=== PATIENT | female | born 1955 | race Caucasian/White ===

== ENCOUNTER → 2016-08-26 | Outpatient (CLI) | payer OTHER ==
[~2016-08-26] MED LIST: ORPH100T PO; TRAM50 PO
--- NOTE | 2016-08-26 15:44 | EKG ---
Date Performed: 08/26/2016 Time Performed: 15:22:11 PTAGE: 61 years EKG: SINUS TACHYCARDIA POSSIBLE LEFT ATRIAL ENLARGEMENT Poor R wave progression NO PREVIOUS TRACING DOCTOR: Steve Lorenz Interpretating Date/Time 08/26/2016 15:43:15
== END ==
LOC: HCAV 15:09
PROVIDERS: ATTEND Family Medicine
DX: I10 Essential (primary) hypertension (principal)
CPT/HCPCS: 93005